=== PATIENT | female | born 1940 | race Caucasian/White ===

== ENCOUNTER 2023-01-08 17:48 | Emergency (ER) | payer MEDICARE, BC ==
[2023-01-08 19:40] LABS: #Monocytes 0.5 10x3/uL (0.0-1.1); #Neutrophils 7.1 10x3/uL (1.5-8.4); %Basophils 0.2 % (0.0-2.0); %Eosinophils 0.1 % (0.0-6.0); %Lymphocytes 6.2 % (18.0-47.0); %Monocytes 5.8 % (0.0-10.0); %Neutrophils 87.3 % (40.0-75.0); Hematocrit 40.3 % (34.9-44.5); Hemoglobin 13.5 g/dL (12.0-15.5); Mean Corpuscular HGB CONC 33.5 g/dL (32.0-36.0); Mean Corpuscular Hemoglobin 30.8 pg (27.0-33.0); Mean Corpuscular Volume 91.8 fl (81.6-98.3); Mean Platelet Volume 9.8 fl (7.4-10.4); Platelet Count 281 10x3/uL (150-450); RBC Distribution Width 11.9 % (11.5-14.5); Red Blood Cell (RBC) Count 4.39 10x6/uL (3.90-5.03); White Blood Cell (WBC) Count 8.1 10x3/uL (3.5-10.5)
[2023-01-08 19:45] LABS: ALT (SGPT) 18 U/L (8-55); AST (SGOT) 24 U/L (5-34); Albumin 4.4 g/dL (3.4-4.8); Alkaline Phosphatase 41 U/L (40-110); Anion Gap 15 mmol/L (10-20); BUN (Urea Nitrogen) 23 mg/dL (9.8-20.1); Bilirubin, Total 0.6 mg/dL (0.2-1.2); Calc. Creatinine Clearance 0 mL/min (70-130); Calcium 9.5 mg/dL (7.8-10.44); Carbon Dioxide 28 mmol/L (23-31); Chloride 94 mmol/L (98-107); Estimated GFR 79; Globulin 2.1 g/dL (2.4-3.5); Glucose 129 mg/dL (83-110); Magnesium 1.7 mg/dL (1.6-2.6); Potassium 5.2 mmol/L (3.5-5.1); Protein, Total 6.5 g/dL (5.8-8.1); Sodium 132 mmol/L (136-145)
[2023-01-08 19:52] LABS: Troponin I Less than 0.010 ng/mL (< 0.028)
[2023-01-08 19:58] LABS: Bilirubin Neg (Negative); Blood, Urine Negative (Negative); Clarity Clear (Clear); Glucose, Urine (Dipstick) Normal (Negative); Ketone, Urine 15 mg/dL (Negative); Leukocyte 25 (Negative); Nitrite Negative (Negative); Protein, Urine (Dipstick) 15 mg/dl (Neg-Trace); Specific Gravity, Urine 1.015 (1.005-1.030); Urobilinogen Normal mg/dL (Less than 2)
[2023-01-08] MEDS ORDERED: Ondansetron PF 4 MG/2 ML Vial ONE (19:58)
[2023-01-08 20:18] LABS: Bacteria/HPF Rare-Few HPF (None Seen); CAUTI Indications for Culture Alt mental st,lethar; RBC/HPF None Seen HPF (0-3); Squamous Epithelial 0-3 HPF (0-3)
[2023-01-08 20:19] LABS: Urine Culture Reflex No No
[2023-01-08 21:41] LABS: SARS-CoV-2 NAA Rapid Test Not Detected (NotDetected)
[2023-01-08] MEDS ORDERED: cefTRIAXone (ROCEPHIN) 1 GM VIAL ONE (22:15)
== END 2023-01-08 23:00 | disposition home or self-care (01) ==
LOC: CSHERS 17:48
DX: N39.0 Urinary tract infection, site not specified (principal); E86.0 Dehydration; R53.81 Other malaise; J44.9 Chronic obstructive pulmonary disease, unspecified; E78.00 Pure hypercholesterolemia, unspecified; Z20.822 Contact with and (suspected) exposure to COVID-19
CPT/HCPCS: 0240U; 80053; 81001; 83735; 84484; 85025; 93005; 96374; 96375; 99285; J0696; J2405

== ENCOUNTER 2023-04-25 14:06 | Emergency (ER) | payer MEDICARE ==
[~2023-04-25 14:06] MED LIST: Iopamidol 300 61% 100 ML VIAL FS ONE
[2023-04-25] MEDS ORDERED: fentaNYL 50 mcg/mL 1 mL Vial ONE (14:45)
[2023-04-25 14:51] LABS: #Monocytes 0.4 10x3/uL (0.0-1.1); #Neutrophils 6.7 10x3/uL (1.5-8.4); %Basophils 0.4 % (0.0-2.0); %Eosinophils 0.2 % (0.0-6.0); %Lymphocytes 11.1 % (18.0-47.0); %Monocytes 4.8 % (0.0-10.0); %Neutrophils 83.1 % (40.0-75.0); Hematocrit 40.3 % (34.9-44.5); Hemoglobin 13.4 g/dL (12.0-15.5); Mean Corpuscular HGB CONC 33.3 g/dL (32.0-36.0); Mean Corpuscular Hemoglobin 30.7 pg (27.0-33.0); Mean Corpuscular Volume 92.4 fl (81.6-98.3); Mean Platelet Volume 10.4 fl (7.4-10.4); Platelet Count 285 10x3/uL (150-450); Red Blood Cell (RBC) Count 4.36 10x6/uL (3.90-5.03); White Blood Cell (WBC) Count 8.1 10x3/uL (3.5-10.5)
[2023-04-25 15:00] LABS: ALT (SGPT) 23 U/L (8-55); AST (SGOT) 25 U/L (5-34); Albumin 4.5 g/dL (3.4-4.8); Alkaline Phosphatase 42 U/L (40-110); Anion Gap 12 mmol/L (10-20); BUN (Urea Nitrogen) 17 mg/dL (9.8-20.1); Bilirubin, Total 0.5 mg/dL (0.2-1.2); Calc. Creatinine Clearance 0 mL/min (70-130); Calcium 9.7 mg/dL (7.8-10.44); Carbon Dioxide 31 mmol/L (23-31); Chloride 97 mmol/L (98-107); Estimated GFR 72; Globulin 2.4 g/dL (2.4-3.5); Glucose 106 mg/dL (83-110); Potassium 4.8 mmol/L (3.5-5.1); Protein, Total 6.9 g/dL (5.8-8.1); Sodium 135 mmol/L (136-145)
[2023-04-25 15:08] LABS: Troponin I Less than 0.010 ng/mL (< 0.028)
== END 2023-04-25 16:33 | disposition home or self-care (01) ==
LOC: CSHERS 14:06
DX: J44.0 Chronic obstructive pulmonary disease with (acute) lower respiratory infection (principal); M94.0 Chondrocostal junction syndrome [Tietze]
CPT/HCPCS: 71260; 80053; 84484; 85025; 93005; J3010; 96374; Q9967

== ENCOUNTER 2023-05-12 08:11 | Outpatient (CLI) | payer MEDICARE | END 2023-05-12 08:12 | disposition home or self-care (01) | LOC: CSHRAD 08:11 | PROVIDERS: ATTEND Internal Medicine Critical Care Medicine | DX: I49.9 Cardiac arrhythmia, unspecified (principal) | CPT/HCPCS: 93005; 93010 ==

== ENCOUNTER 2023-09-18 16:06 | Emergency (ER) | payer MEDICARE, BC ==
[2023-09-18] MEDS ORDERED: Lorazepam 2 MG/ML VIAL ONE (17:08)
[2023-09-18 17:13] LABS: #Basophils 0.02 10x3/uL (0.0-0.2); #Eosinphils 0.01 10x3/uL (0.0-0.5); #Monocytes 0.43 10x3/uL (0.0-1.1); %Basophils 0.3 % (0.0-2.0); %Eosinophils 0.1 % (0.0-6.0); %Lymphocytes 9.4 % (18.0-47.0); %Monocytes 6.4 % (0.0-10.0); %Neutrophils 83.5 % (40.0-75.0); Hematocrit 40.2 % (34.9-44.5); Hemoglobin 13.5 g/dL (12.0-15.5); Mean Corpuscular HGB CONC 33.6 g/dL (32.0-36.0); Mean Corpuscular Hemoglobin 31.7 pg (27.0-33.0); Mean Corpuscular Volume 94.4 fL (81.6-98.3); Mean Platelet Volume 10.3 fL (7.4-10.4); Platelet Count 293 10x3/uL (150-450); RBC Distribution Width 12.1 % (11.5-14.5); Red Blood Cell (RBC) Count 4.26 10x6/uL (3.90-5.03); White Blood Cell (WBC) Count 6.7 10x3/uL (3.5-10.5)
[2023-09-18 17:26] LABS: ALT (SGPT) 22 U/L (8-55); AST (SGOT) 25 U/L (5-34); Albumin 4.1 g/dL (3.4-4.8); Alkaline Phosphatase 38 U/L (40-110); Anion Gap 12 mmol/L (10-20); BUN (Urea Nitrogen) 22 mg/dL (9.8-20.1); Bilirubin, Total 0.5 mg/dL (0.2-1.2); Calc. Creatinine Clearance 0 mL/min (70-130); Carbon Dioxide 31 mmol/L (23-31); Chloride 95 mmol/L (98-107); Estimated GFR 61; Globulin 2.8 g/dL (2.4-3.5); Glucose 151 mg/dL (83-110); Potassium 4.2 mmol/L (3.5-5.1); Protein, Total 6.9 g/dL (5.8-8.1); Sodium 134 mmol/L (136-145)
[2023-09-18 18:26] LABS: Bilirubin Neg (Negative); Blood, Urine Negative (Negative); Clarity Clear (Clear); Glucose, Urine (Dipstick) Normal (Negative); Ketone, Urine Negative (Negative); Leukocyte Negative (Negative); Nitrite Negative (Negative); Protein, Urine (Dipstick) Negative (Neg-Trace); Urobilinogen Normal mg/dL (Less than 2)
[2023-09-18 18:38] LABS: CAUTI Indications for Culture Alt mental st,lethar; RBC/HPF 0-3 HPF (0-3); Squamous Epithelial 0-3 HPF (0-3); WBC/HPF None Seen HPF (0-3)
[2023-09-18 18:39] LABS: Bacteria/HPF Rare-Few HPF (None Seen)
[2023-09-18 18:40] LABS: Urine Culture Reflex No No
== END 2023-09-18 19:14 | disposition home or self-care (01) ==
LOC: CSHERS 16:06
DX: F41.1 Generalized anxiety disorder (principal); J44.9 Chronic obstructive pulmonary disease, unspecified
CPT/HCPCS: 71045; 80053; 81001; 85025; 93005; J2060; 96374

== ENCOUNTER 2023-11-12 21:54 | Emergency (ER) | payer MEDICARE, BC ==
[2023-11-12] MEDS ORDERED: Lorazepam 2 MG/ML VIAL ONE (23:04)
== END 2023-11-12 23:46 | disposition home or self-care (01) ==
LOC: CSHERS 21:54
DX: F41.9 Anxiety disorder, unspecified (principal)
CPT/HCPCS: 96372; 99283; J2060

== ENCOUNTER 2023-12-22 12:58 | Observation (INO) | payer MEDICARE, BC ==
[2023-12-22] MEDS ORDERED: Diazepam 10 MG/2 ML SYRINGE ONE ×2 (13:42→17:22)
[2023-12-22 14:13] LABS: #Basophils 0.02 10x3/uL (0.0-0.2); #Eosinphils 0.01 10x3/uL (0.0-0.5); #Neutrophils 6.28 10x3/uL (1.5-8.4); %Basophils 0.3 % (0.0-2.0); %Eosinophils 0.1 % (0.0-6.0); %Lymphocytes 7.4 % (18.0-47.0); %Monocytes 6.8 % (0.0-10.0); %Neutrophils 84.9 % (40.0-75.0); Hematocrit 39.3 % (34.9-44.5); Hemoglobin 13.3 g/dL (12.0-15.5); Mean Corpuscular HGB CONC 33.8 g/dL (32.0-36.0); Mean Corpuscular Hemoglobin 31.8 pg (27.0-33.0); Mean Platelet Volume 9.2 fL (7.4-10.4); Platelet Count 298 10x3/uL (150-450); Red Blood Cell (RBC) Count 4.18 10x6/uL (3.90-5.03); White Blood Cell (WBC) Count 7.4 10x3/uL (3.5-10.5)
[2023-12-22 14:24] LABS: ALT (SGPT) 10 U/L (8-55); AST (SGOT) 14 U/L (5-34); Albumin 3.8 g/dL (3.4-4.8); Alkaline Phosphatase 37 U/L (40-110); Anion Gap 11 mmol/L (10-20); BUN (Urea Nitrogen) 25 mg/dL (9.8-20.1); Bilirubin, Total 0.5 mg/dL (0.2-1.2); Calc. Creatinine Clearance 0 mL/min (70-130); Calcium 9.8 mg/dL (7.8-10.44); Carbon Dioxide 28 mmol/L (23-31); Chloride 101 mmol/L (98-107); Estimated GFR 79; Globulin 2.4 g/dL (2.4-3.5); Glucose 81 mg/dL (83-110); Potassium 4.9 mmol/L (3.5-5.1); Protein, Total 6.2 g/dL (5.8-8.1); Sodium 135 mmol/L (136-145)
[2023-12-22 14:29] LABS: Troponin I Less than 0.010 ng/mL (< 0.028)
[2023-12-22] MEDS: Ipratropium/Albuterol 3 ML NEB NEB SCH (18:30)
[2023-12-22] MEDS: Mometasone 100 MCG/PUFF (1 INHALER) INH SCH (18:30)
[2023-12-22] MEDS ORDERED: Ondansetron ODT 4 MG TAB PO PRN (18:38)
[2023-12-22] MEDS ORDERED: Senokot S 8.6-50 MG TAB PO PRN (18:38)
[2023-12-22] MEDS ORDERED: Acetaminophen 650 MG Suppository PR PRN (18:38)
[2023-12-22] MEDS ORDERED: Ondansetron PF 4 MG/2 ML Vial IVP PRN (18:38)
[2023-12-22 21:34] VITALS: BMI 16.4
[2023-12-22] MEDS: Donepezil HCl 5 MG TAB PO SCH (22:40)
[2023-12-22] MEDS: Benzonatate 100 MG CAP PO SCH (22:41)
[2023-12-22] MEDS: Sodium Chloride 0.9% 1,000 ML IV SCH (22:41)
[2023-12-23] MEDS: FLU (Fluad Triv) TS24-25 (65UP)/MF59C/PF 45 MCG/0.5 ML Syringe IM ONE (00:05)
[2023-12-23] MEDS: Doxepin HCl 10 MG CAP PO PRN (00:33)
[2023-12-23] MEDS: Acetaminophen 325 MG TAB PO SCH (00:39)
[2023-12-23 04:38] LABS: Anion Gap 12 mmol/L (10-20); BUN (Urea Nitrogen) 16 mg/dL (9.8-20.1); Calc. Creatinine Clearance 38 mL/min (70-130); Calcium 8.6 mg/dL (7.8-10.44); Carbon Dioxide 26 mmol/L (23-31); Chloride 103 mmol/L (98-107); Estimated GFR 84; Glucose 84 mg/dL (83-110); Potassium 4.4 mmol/L (3.5-5.1); Sodium 137 mmol/L (136-145)
[2023-12-23 04:45] LABS: #Basophils 0.02 10x3/uL (0.0-0.2); #Eosinphils 0.03 10x3/uL (0.0-0.5); #Monocytes 0.64 10x3/uL (0.0-1.1); #Neutrophils 4.66 10x3/uL (1.5-8.4); %Basophils 0.3 % (0.0-2.0); %Eosinophils 0.5 % (0.0-6.0); %Lymphocytes 15.4 % (18.0-47.0); %Monocytes 10.1 % (0.0-10.0); %Neutrophils 73.2 % (40.0-75.0); Hematocrit 37.2 % (34.9-44.5); Hemoglobin 12.6 g/dL (12.0-15.5); Mean Corpuscular HGB CONC 33.9 g/dL (32.0-36.0); Mean Corpuscular Hemoglobin 31.6 pg (27.0-33.0); Mean Corpuscular Volume 93.2 fL (81.6-98.3); Mean Platelet Volume 9.4 fL (7.4-10.4); Platelet Count 274 10x3/uL (150-450); RBC Distribution Width 12.8 % (11.5-14.5); Red Blood Cell (RBC) Count 3.99 10x6/uL (3.90-5.03); White Blood Cell (WBC) Count 6.4 10x3/uL (3.5-10.5)
[2023-12-23] MEDS: Budesonide 0.5 MG/2 ML NEB INH SCH (07:20)
[2023-12-23] MEDS ORDERED: Ipratropium/Albuterol 3 ML NEB NEB PRN (09:36)
[2023-12-23] MEDS: predniSONE 10 MG TAB PO SCH (10:27)
[2023-12-23] MEDS: Lorazepam 1 MG TAB PO PRN (10:27)
[2023-12-23] MEDS: Pantoprazole DR 40 MG TAB PO SCH (10:28)
[2023-12-23 19:39] VITALS: BMI 16.4
[2023-12-23] MEDS: Donepezil HCl 5 MG TAB PO SCH (20:43)
[2023-12-23] MEDS: Acetaminophen 325 MG TAB PO PRN (20:43)
[2023-12-23] MEDS: Ipratropium/Albuterol 3 ML NEB NEB SCH (21:00)
[2023-12-24] MEDS: Heparin 5,000 UNITS/ML VIAL SC SCH (00:29)
[2023-12-24 16:00] VITALS: BP 147/70; TEMP 97.7
== END 2023-12-24 15:55 | disposition home or self-care (01) ==
LOC: CSHERS 12:58 → CSHTELE 18:31
PROVIDERS: ADMIT Internal Medicine; ATTEND Family Medicine
DX: F41.0 Panic disorder [episodic paroxysmal anxiety] (principal); J44.9 Chronic obstructive pulmonary disease, unspecified; F13.230 Sedative, hypnotic or anxiolytic dependence with withdrawal, uncomplicated; G20.A1 Parkinson's disease without dyskinesia, without mention of fluctuations; F32.A Depression, unspecified; E78.5 Hyperlipidemia, unspecified; R45.851 Suicidal ideations; F03.90 Unspecified dementia, unspecified severity, without behavioral disturbance, psychotic disturbance, mood disturbance, and anxiety; Z88.0 Allergy status to penicillin; Z88.8 Allergy status to other drugs, medicaments and biological substances; Z88.5 Allergy status to narcotic agent; R79.89 Other specified abnormal findings of blood chemistry
CPT/HCPCS: 71045; 80048; 80053; 82962; 84484; 85025 ×2; 93005; 94640 ×3; 94760 ×2; 94762; 96374; 96376; 97530; 99285; G0378 ×4; J3360; J7030; 36415; 36416; J7512; J7620; J7626